=== PATIENT | male | born 2000 | race Caucasian/White ===

== ENCOUNTER 2023-11-25 22:23 | Emergency (ER) | payer BC ==
[2023-11-25] MEDS ORDERED: HYDROcodone/Acetaminophen 10/325 mg Tablet ONE (23:18)
[2023-11-25] MEDS ORDERED: Orphenadrine Citrate 60 MG/2 ML VIAL ONE (23:19)
[2023-11-25] MEDS ORDERED: Lidocaine 4% Patch TD SCH (23:30)
== END 2023-11-26 00:48 | disposition home or self-care (01) ==
LOC: CSHERS 22:23
DX: M54.42 Lumbago with sciatica, left side (principal)
CPT/HCPCS: 96372; 99283; J2360